=== PATIENT | female | born 1945 | race African-American/Black ===

== ENCOUNTER 2017-04-05 23:57 | Emergency (ER) | payer MEDICARE, MEDICAID ==
[~2017-04-05] VITALS: Ht 167.6 cm; Wt 95.2 kg
[~2017-04-05 23:57] MED LIST: ABIL10; DIVA125T2; FURO-152; OMEP20CA10; POTA10TA69; SIMV5TAB53; ZOLOFT
[2017-04-06] MEDS ORDERED: DIPHENHYDRAMINE 50MG/ML VIAL IM ONE (03:45)
[2017-04-06] MEDS ORDERED: LORAZEPAM 2MG/ML CPJ IM ONE (03:45)
[2017-04-06 04:25] LABS: CHLORIDE 106 mEq/L (98-107)
[2017-04-06 04:34] LABS: BASOPHILS % 0.8 % (0.0-2.0); EOSINOPHILS % 0.2 % (0.0-5.0); HEMATOCRIT. 41.6 % (36.0-48.0); HEMOGLOBIN. 13.7 g/dL (12.0-16.0); LYMPHOCYTES % 24.1 % (20.0-50.0); MEAN CORPUSCULAR VOLUME 82.1 fL (81.0-99.0); MEAN PLATELET VOLUME 9.9 fl (7.4-10.4); MONOCYTES % 10.1 % (2.0-8.0); NEUTROPHILS % 64.8 % (40.0-76.0); PLATELET 163 x1000/uL (130-400); RED BLOOD CELL COUNT 5.07 mill/uL (4.2-5.4); RED CELL DISTRIBUTION WIDTH 15.9 % (11.6-14.6)
[2017-04-06 04:41] LABS: CARBON DIOXIDE 27 mEq/L (21-32); ETHANOL BLOOD < 10 mg/dL
[2017-04-06 11:53] LABS: CLARITY URINE CLOUDY (CLEAR); COLOR URINE DARK YELLOW (YELLOW); GLUCOSE URINE NEGATIVE (NEGATIVE); KETONES URINE TRACE (NEGATIVE); LEUKOCYTE ESTERASE URINE 2+ (NEGATIVE); NITRITE URINE NEGATIVE (NEGATIVE); OCCULT BLOOD URINE NEGATIVE (NEGATIVE); PH URINE 5.5 (4.5-8.0); PROTEIN URINE 1+ (NEGATIVE); SPECIFIC GRAVITY URINE 1.033 (1.005-1.030)
[2017-04-06 12:28] LABS: *AMPHETAMINES SCREEN URINE NEGATIVE (NEGATIVE); *BARBITURATES SCREEN URINE NEGATIVE (NEGATIVE); *BENZODIAZEPINES SCREEN URINE NEGATIVE (NEGATIVE); *COCAINE SCREEN URINE NEGATIVE (NEGATIVE); CANNABINOID URINE SCREEN NEGATIVE (NEGATIVE); METHADONE URINE SCREEN NEGATIVE (NEGATIVE); OPIATES URINE SCREEN NEGATIVE (NEGATIVE); PHENCYCLIDINE URINE SCREEN NEGATIVE (NEGATIVE)
[2017-04-06] MEDS ORDERED: SULFAMETHOXAZOLE/TRIMETHOPRIM 800/160MG TABLET PO ONE (19:45)
[2017-04-07] MEDS ORDERED: LORAZEPAM 2MG/ML CPJ IM ONE (10:15)
[2017-04-08 00:24] VITALS: BP 133/73
[2017-04-08] MEDS: LORAZEPAM 2MG/ML CPJ IM PRN ×2 (00:39→00:40)
== END 2017-04-08 01:07 ==
LOC: ER 04-06
DX: R41.82 Altered mental status, unspecified (principal); F20.9 Schizophrenia, unspecified; I11.9 Hypertensive heart disease without heart failure; G40.909 Epilepsy, unspecified, not intractable, without status epilepticus; Z88.0 Allergy status to penicillin; Z79.899 Other long term (current) drug therapy
CPT/HCPCS: 36415; 80048; 80305; 80307; 80329; 81001; 85025; 96372; 99285; G0482; J1200; J2060

== ENCOUNTER 2018-02-14 14:43 | Emergency (ER) | payer MEDICARE, MEDICAID ==
[~2018-02-14] VITALS: Ht 170.2 cm; Wt 100.0 kg
[~2018-02-14 14:43] MED LIST changes: +POTA10TA11; -POTA10TA69
[2018-02-14] MEDS ORDERED: ACETAMINOPHEN 325MG TABLET PO ONE (16:00)
[2018-02-14 21:27] VITALS: BP 124/81
== END 2018-02-14 21:40 | disposition home or self-care (01) ==
LOC: ER 16:24
DX: S80.02XA Contusion of left knee, initial encounter (principal); M54.5 Low back pain; I10 Essential (primary) hypertension; Z88.0 Allergy status to penicillin; V43.62XA Car passenger injured in collision with other type car in traffic accident, initial encounter; Y93.89 Activity, other specified; Y92.89 Other specified places as the place of occurrence of the external cause; Y99.8 Other external cause status
CPT/HCPCS: 72100; 72148; 73562; 99284; L1830